=== PATIENT | male | born 2000 | race Asian ===

== ENCOUNTER → 2023-09-26 08:17 | Outpatient (CLI) | payer OTHER, SELFPAY ==
--- NOTE | 2023-09-26 08:23 | DI.MRI.S_ITS ---
PROCEDURE: MR ANKLE LT WO CON INDICATIONS: Left ankle pain. fracture of unspecified talus TECHNIQUE: Noncontrast sagittal T1 spin echo and T2 fast spin echo with fat saturation, axial proton density fast spin echo and T2 fast spin echo with fat saturation, coronal T1 spin echo and T2 fast spin echo with fat saturation through the ankle/hindfoot. COMPARISON: None. FINDINGS: Image quality: Excellent. Bones and joints: There is suggestion of osteochondral injury involving anterolateral weight-bearing portion of talar dome with an unstable appearing fragment measures 5 x 3 x 6 mm in size. Mild surrounding marrow edema is noted. There is also mild edema involving plantar aspect of distal talus adjacent to subtalar joint without discrete fracture line. No other area of abnormal marrow signal. Small to moderate amount of tibiotalar and subtalar joint seen, no gross loose bodies. Medial structures: The posterior tibialis, flexor digitorum longus, and flexor hallucis longus tendons are thickened with small to moderate amount of fluid distending flexor tendon sheath most notably involving posterior tibialis tendon at the level of distal talus and talonavicular joint. The posterior tibial neurovascular bundle appears normal within the tarsal tunnel, without extrinsic mass effect. The deltoid ligament and spring ligament are thickened with intrasubstance T2 hyperintense signal. Lateral structures: The anterior talofibular, calcaneofibular, and posterior talofibular ligaments appear thickened with intrasubstance T2 hyperintense signal particularly involving anterior talofibular ligament. More superiorly, the anterior tibial fibular ligament is thickened with intrasubstance T2 hyperintense signal. The posterior tibial fibular ligament is intact. The tibiofibular syndesmosis is normal in width at 2 mm or less. There is thickening of the peroneus longus tendon at the level of mid to distal calcaneus extending to its distal insertion with intrasubstance T2 hyperintense signal and surrounding fluid distending tendon sheath. The peroneus brevis tendon is grossly intact. Adjacent bony peroneal tubercle and retrotrochlear prominence are normal in size. The sinus tarsi demonstrates normal fatty signal, without edema, fibrosis, or cyst formation. Visualized sinus tarsi components (cervical ligament, interosseous talocalcaneal ligament, roots of the inferior extensor retinaculum) appear normal. The calcaneonavicular and calcaneocuboid components of the bifurcate ligament appear intact. The dorsal calcaneocuboid ligament appears intact. Anterior structures: The tibialis anterior, extensor hallucis longus, and extensor digitorum longus tendons appear intact. The dorsal talonavicular ligament appears intact. Posterior and plantar structures: Achilles tendon is intact. Medial and lateral bands of the plantar fascia are of normal thickness. No abductor digiti quinti muscle atrophy to suggest [place] neuropathy. IMPRESSION: 1. Osteochondral injury involving anterolateral weight-bearing portion of talar dome with a 5 x 3 x 6 millimeter unstable appearing fragment and surrounding marrow edema. Bony contusion involving inferior aspect of distal talus. No area of abnormal marrow signal. Small to moderate tibiotalar joint effusion. No gross loose bodies. 2. Low to moderate grade tenosynovitis and low-grade intrasubstance partial-thickness tear involving flexor tendons most notably involving posterior tibialis tendon at its distal insertion. 3. Low-grade sprain/intrasubstance partial-thickness tear involving medial ankle ligaments. 4. Moderate grade sprain/intrasubstance partial-thickness tear involving anterior talofibular ligament and anterior tibial fibular ligament. Low-grade sprain involving posterior talofibular ligament and calcaneofibular ligament. 5. Low to moderate grade tendinosis and intrasubstance partial-thickness tear involving peroneus longus tendon extending from the level of mid to distal calcaneus to its distal insertion. The peroneus brevis tendon is grossly intact. Dictated by: Ajit Freeman M.D. on 09/26/2023 at 10:18 Approved by: Ajit Freeman M.D. on 09/26/2023 at 12:22
== END ==
PROVIDERS: Referring Provider Student in an Organized Health Care Education/Training Program; Visit Provider Student in an Organized Health Care Education/Training Program
DX: S92.142A Displaced dome fracture of left talus, initial encounter for closed fracture (principal); S93.492A Sprain of other ligament of left ankle, initial encounter; S93.432A Sprain of tibiofibular ligament of left ankle, initial encounter; S93.412A Sprain of calcaneofibular ligament of left ankle, initial encounter; S90.02XA Contusion of left ankle, initial encounter; M65.872 Other synovitis and tenosynovitis, left ankle and foot; M25.472 Effusion, left ankle; M92.70 Juvenile osteochondrosis of metatarsus, unspecified foot
CPT/HCPCS: 73721

== ENCOUNTER 2024-06-24 07:51 | Day surgery (SDC) | payer OTHER, SELFPAY ==
[2024-06-19 08:04] VITALS: BMI 31.0
[2024-06-24 08:13] VITALS: BP 123/82; PULSE 90; RESP 18; TEMP 37.1; O2SAT 99; BMI 31.9
[2024-06-24] MEDS: LACTATED RINGERS 1,000 ML 42 ML IV ×2 (08:24→10:14)
[2024-06-24] MEDS: ACETAMINOPHEN 325 MG TABLET 975 MG PO (08:24)
--- NOTE | 2024-06-24 08:56 | PM.PREOP ---
Pre-operative Note Interval Note History & Physical reviewed/Exam performed by Physician: Yes Changes to H&P: No
--- NOTE | 2024-06-24 09:04 | P.OP_ITS ---
Operative Date/Time/Diagnoses Date of procedure: 06/24/24 Time of procedure: 09:30 Pre-op diagnosis: Left ankle talar dome osteochondral lesion Post-op diagnosis: same Procedure & Clinicians Procedure: Arthroscopy left ankle with excision osteochondral defect left ankle CPT code 33769 Same procedure as scheduled: Yes Indications: Patient is a 23-year-old male that had an ankle sprain in August 2023 in his had 9 months of persistent pain with extensive conservative treatment and was found to have persistent anterolateral ankle pain catching and sharp pain and an anterior lateral talus osteochondral lesion with an unstable fragment. He is failed conservative treatment greater than 6 months in his indicated for surgery for the osteochondral lesion. He does not have increased anterior drawer on the left side and so plan would be to arthroscopic address the osteochondral lesion. It was small lesion 5 x 4 x 6 mm--plan for debridement/excision. The risks and benefits of the procedure have been discussed with the patient and given the opportunity to ask questions. The risks of surgery include but are not limited to infection, malunion, nonunion, persistence of pain, damage to nerves and blood vessels, posttraumatic arthritis, DVT, PE, cardiopulmonary complications and . The patient expressed a thorough understanding of the risks and benefits of surgery and has elected to proceed. Consent was signed in the office Surgeon: Shannan Mathur Anesthesia Type: General and Local Operative Notes Findings: Anterolateral osteochondral lesion unstable fragment, excised OCL measured approximally 6 x 6 mm. Remainder of cartilage tibiotalar joint intact. Closure Type: primary Specimen(s): none sent Prosthetic devices, grafts, tissues, transplants, or devices: none Estimated Blood Loss (mL): 5 Blood products transfused: none Tourniquet time (min): 37 Procedure in detail: Patient was seen in the preoperative area the site of surgery was marked this was the left ankle. Informed consent was confirmed. The patient was brought back to the operating room by the anesthesia team positioned supine on operative table. Bony prominences well padded. A well-padded thigh tourniquet was applied. The well leg ramsey was positioned. The left lower extremity was prepped and draped in the standard sterile fashion a formal time-out procedure was performed confirming the patient's side and site of surgery administration of appropriate preoperative antibiotic. All were in agreement. Esmarch was used for exsanguination the tourniquet raised to 250 mm of mercury. Attention turned to the ankle. The noninvasive distractor was set up. The anteromedial and anterolateral portal sites were drawn out on the skin with care to avoid the superficial peroneal nerve branch laterally. The medial portal was established in the standard fashion with a nii and spread technique. The arthroscope was inserted. Then under direct visualization and a nii and spread technique the anterolateral portal was established. Diagnostic arthroscopy demonstrated intact cartilage with the exception of the anterior lateral osteochondral defect. The ring curette, graspers and Maribel were used to excise the anterolateral osteochondral fragment and the shaver used to debride the base. Once this was completed measured approximately 6 mm x 6 mm isolated to anterolateral talar dome. Once this was satisfactory instruments were removed tourniquet was released hemostasis was achieved and the portals were closed with 3-0 nylon suture. Local anesthetic with 0.25% Marcaine and epinephrine was in jected for local anesthesia. A sterile dressing was applied with Xeroform gauze Webril and an Pan wrap drapes removed the patient was woken from anesthesia and taken to recovery room in good condition there were no immediate complications for this procedure. Counts correct. Complications: none Post-operative Condition: stable Disposition: PACU Plan for aftercare: Touchdown weight-bearing in the boot x2 weeks. Follow up in Orthopedic Clinic in 2 weeks for suture removal and advanced to weightbear as tolerated in the boot and then to an ankle brace. Aspirin 325 mg daily for DVT prophylaxis until out of the boot.
[2024-06-24] MEDS: CEFAZOLIN 2 GM/100 ML PREMIX 100 ML IV (09:15)
--- NOTE | 2024-06-24 09:37 | SUR.OPER ---
Supine on padded OR bed, head on pillow, arms secured on padded arm boards at <90 degrees abduction, legs uncrossed, safety belt at thigh, tape over blanket over RIGHT LEG. LEFT LEG PREPPED AND HELD ON FIELD WITH WELL LEG MILLER.
[2024-06-24] MEDS: BUPIVACAINE 0.25% (PF) 30 ML, EPINEPHrine 0.15 MG INJ (09:51)
[2024-06-24 10:25] VITALS: BP 119/78; PULSE 91; RESP 15; TEMP 36.1; O2SAT 94
[2024-06-24 10:31] VITALS: BP 114/71; PULSE 87; RESP 13; TEMP 36.2; O2SAT 94
[2024-06-24] MEDS: ONDANSETRON 4 MG/2 ML INJ IV (10:38)
[2024-06-24] MEDS: OXYCODONE IR 5 MG TABLET PO (10:38)
[2024-06-24 10:39] VITALS: BP 113/76; PULSE 86; RESP 18; TEMP 36.2; O2SAT 95
[2024-06-24 10:42] VITALS: BP 113/75; PULSE 86; RESP 12; TEMP 36.2; O2SAT 94
== END 2024-06-24 11:00 | disposition home or self-care (01) ==
PROVIDERS: Referring Provider Orthopaedic Surgery Foot and Ankle Surgery; Visit Provider Orthopaedic Surgery Foot and Ankle Surgery
PROC: (CPT 29891; principal; 2024-06-24 09:15)
DX: M89.9 Disorder of bone, unspecified (principal); M94.9 Disorder of cartilage, unspecified
CPT/HCPCS: 29891; J0171; J0690; J1100; J1885; J2250; J2405; J2704; J3010

== ENCOUNTER → 2024-08-14 13:32 | Outpatient (CLI) | payer OTHER, SELFPAY ==
--- NOTE | 2024-08-14 | DI.US.S_ITS ---
PROCEDURE: US ABDOMEN LIMITED INDICATIONS: PERSISTENT ELEVATED LIVER ENZYMES TECHNIQUE: Real-time scanning was performed of the abdominal and retroperitoneal organs, with image documentation. COMPARISON: None. FINDINGS: Liver: The liver is enlarged, with the right lobe measuring 20 cm in the craniocaudal dimension. The parenchyma is extensively hyperechoic, which limits evaluation of the deeper structures Gallbladder: No gallstones. No wall thickening. No pericholecystic edema. Negative sonographic Shen's sign. Biliary ducts: Not well identified due to insufficient penetration of the ultrasound beam Pancreas: Not well identified due to overlying bowel gas and insufficient and region of the ultrasound beam 1 IMPRESSION: Hepatomegaly and hepatic steatosis versus underlying hepatocellular disease. Dictated by: Girish Cook M.D. on 08/14/2024 at 22:03 Approved by: Girish Cook M.D. on 08/14/2024 at 22:04
== END ==
LOC: US 13:33
PROVIDERS: Referring Provider Nurse Practitioner Family; Visit Provider Nurse Practitioner Family
DX: R16.0 Hepatomegaly, not elsewhere classified (principal); R74.8 Abnormal levels of other serum enzymes
CPT/HCPCS: 76705

== ENCOUNTER → 2024-10-02 12:17 | Outpatient (CLI) | payer OTHER, SELFPAY ==
--- NOTE | 2024-10-02 12:18 | DI.MRI.S_ITS ---
PROCEDURE: MR ANKLE LT WO CON INDICATIONS: ACHILLES TENDINOSIS TECHNIQUE: Noncontrast sagittal T1 spin echo and T2 fast spin echo with fat saturation, axial proton density fast spin echo and T2 fast spin echo with fat saturation, coronal T1 spin echo and T2 fast spin echo with fat saturation through the ankle/hindfoot. COMPARISON: [facility], MR, MR ANKLE LT WO CON, 09/26/2023, 8:30. FINDINGS: Image quality: Excellent. Bones and joints: Again noted is small osteochondral lesion involving lateral weight-bearing portion of talar dome measures 6 x 3 x 6 mm in size not significantly changed from prior study. Previously noted and stable appearing fragment is no longer seen. No significant marrow edema is noted on the current study. Osteoarthritic changes are noted in tibiotalar joint. Small osteochondral injury involving anterior and lateral aspect of distal tibial plafond is seen measures 4 mm in size. No acute fracture or dislocation. Small joint effusion, no loose bodies. Medial structures: The posterior tibialis tendon is mildly thickened with small amount of fluid distending tendon sheath at the level of distal talus and talonavicular joint. The flexor digitorum longus, and flexor hallucis longus tendons are intact. The posterior tibial neurovascular bundle appears normal within the tarsal tunnel, without extrinsic mass effect. The deltoid ligament and spring ligament are intact. Lateral structures: The anterior talofibular ligament is thickened. The calcaneofibular, and posterior talofibular ligaments appear intact. More superiorly, the anterior and posterior tibiofibular ligaments appear intact, as is the intermalleolar ligament. The tibiofibular syndesmosis is normal in width at 2 mm or less. The peroneus longus and brevis tendons demonstrate normal location and morphology. No gross signal abnormality is seen within the sinus tarsi. Anterior structures: The tibialis anterior, extensor hallucis longus, and extensor digitorum longus tendons appear intact. The dorsal talonavicular ligament appears intact. Posterior and plantar structures: Mildly thickened Achilles tendon at its posterior calcaneal insertion is seen. No Achilles tendon rupture. Medial and lateral bands of the plantar fascia are of normal thickness. No abductor digiti quinti muscle atrophy to suggest [place] neuropathy. IMPRESSION: 1. Stable size of small osteochondral lesion involving lateral weight-bearing portion of talar dome with interval decrease in amount of surrounding edema. No unstable fragment is seen on the current study. 4 mm osteochondral injury is seen in anterior and lateral aspect of distal tibial plafond. No fracture or dislocation. Small joint effusion, no loose bodies. Mild osteoarthritic changes are seen in tibiotalar joint. 2. Low-grade tenosynovitis involving posterior tibialis tendon at the level of distal talus and talonavicular joint. 3. Moderate grade ATFL sprain/partial-thickness tear. Rest of the ankle ligaments are intact. 4. Distal Achilles tendinosis at its posterior calcaneal insertion. No Achilles tendon rupture. Dictated by: Ajit Freeman M.D. on 10/02/2024 at 22:51 Approved by: Ajit Freeman M.D. on 10/02/2024 at 22:57
== END ==
PROVIDERS: Referring Provider Orthopaedic Surgery Foot and Ankle Surgery; Visit Provider Orthopaedic Surgery Foot and Ankle Surgery
DX: M93.272 Osteochondritis dissecans, left ankle and joints of left foot (principal); S93.492A Sprain of other ligament of left ankle, initial encounter; M65.972 Unspecified synovitis and tenosynovitis, left ankle and foot; M67.88 Other specified disorders of synovium and tendon, other site
CPT/HCPCS: 73721

== ENCOUNTER → 2024-10-20 13:53 | Outpatient (CLI) | payer OTHER, SELFPAY ==
--- NOTE | 2024-10-20 13:54 | DI.MRI.S_ITS ---
PROCEDURE: MR ABDOMEN WO/W CON INDICATIONS: FATTY LIVER TECHNIQUE: Coronal HASTE, axial 2D FLASH in- and [id number]; axial breath-hold T2 FSE. Dynamic axial VIBE during the administration of contrast; post-contrast coronal VIBE or 2D FLASH with fat saturation from the hepatic dome to the iliac crests. Optional diffusion weighted imaging and ADC may be performed. 20 cc ProHance IV contrast. COMPARISON: [facility], , US ABDOMEN LIMITED, 08/14/2024, 13:51. FINDINGS: Image quality: Diagnostic. Lung bases: Unremarkable. Liver: Within normal limits in size. Diffuse hepatic steatosis. No focal lesion. Gallbladder: No gallstones or wall thickening. Biliary ducts: No biliary dilation. Pancreas: No ductal dilation. Spleen: Size is within normal limits. Adrenal Glands: No adrenal nodules. Kidneys and Ureters: No hydronephrosis. No solid mass. No complex renal cystic lesion which requires follow up. Stomach and Bowel: No dilated loops of bowel. Peritoneum: No abnormal intraperitoneal fluid. Ventral Wall: No hernia. Abdominal Nodes: No retroperitoneal or mesenteric adenopathy by size criteria. Vessels: Aorta and inferior vena cava are normal in size. Bones: No aggressive osseous abnormality. IMPRESSION: 1. Hepatic steatosis. 2. No mass. No biliary or pancreatic ductal dilatation. Dictated by: Ga Collins M.D. on 10/20/2024 at 22:29 Approved by: Ga Collins M.D. on 10/20/2024 at 22:38
== END ==
PROVIDERS: Referring Provider Nurse Practitioner Family; Visit Provider Nurse Practitioner Family
DX: K76.0 Fatty (change of) liver, not elsewhere classified (principal)
CPT/HCPCS: 74183; A9579